=== PATIENT | female | born 1990 | race American Indian/Alaskan Native ===

== ENCOUNTER 2017-08-30 14:35 | Inpatient (IN) | payer MEDICAID ==
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
[2017-08-30] MEDS ORDERED: SUBLIMAZE IV PRN (19:36)
[2017-08-30] MEDS ORDERED: MINERAL OIL PO PRN (19:36)
[2017-08-30] MEDS ORDERED: XYLOCAINE 2% INFILTRATI ONE (19:36)
[2017-08-30] MEDS ORDERED: BRETHINE SUB-Q PRN (19:36)
[2017-08-30] MEDS ORDERED: ePHEDrine SULFATE IV PRN (19:36)
[2017-08-30] MEDS ORDERED: ZOFRAN IV PRN (19:36)
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
[2017-08-30] MEDS ORDERED: PITOCin/NS 20 UNIT/1000ML DRIP 20 UNITS/1,000 ML BAG IV SCH (20:00)
[2017-08-30] MEDS ORDERED: PITOCin/NS 30 UNIT/500ML 30 UNITS/500 ML BAG IV SCH (20:00)
[2017-08-30] MEDS ORDERED: LACTATED RINGERS 1,000 ML IV SCH (20:00)
[2017-08-30 21:23] LABS: Hematocrit 35.4 % (30.3-42.9); Hemoglobin 11.7 gm/dl (10.1-14.3); Mean Corpuscular HGB Conc 33 % (30-34); Mean Corpuscular Hemoglobin 33 pg (28-32); Mean Corpuscular Volume 99 fl (79-97); Platelet Count 180 K/mm3 (140-440); Red Blood Count 3.59 M/mm3 (3.65-5.03); Red Cell Distribution Width 13.6 % (13.2-15.2); White Blood Count 8.8 K/mm3 (4.5-11.0)
[2017-08-30] MEDS ORDERED: fentaNYL-BUPIV 2 MCG/ML-0.125% 200 MCG/100 ML BAG EPIDURAL ONE (22:04)
[2017-08-30] MEDS: PITOCin/NS 30 UNIT/500ML 30 UNITS/500 ML BAG IV SCH ×2 (22:23→22:33)
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
[2017-08-31] MEDS ORDERED: NARCAN 2 MG/2 ML IV PRN (00:57)
[2017-08-31] MEDS ORDERED: ePHEDrine SULFATE IV PRN (00:57)
--- NOTE | 2017-08-31 00:57 | Anesthesia Consultation ---
Anesthesia Consult and Med Hx Date of service: 08/31/17 - Airway Anesthetic Teeth Evaluation: Good ROM Head & Neck: Adequate Mental/Hyoid Distance: Adequate Mallampati Class: Class II Intubation Access Assessment: Probably Good - Pulmonary Exam CTA: Yes - Cardiac Exam Cardiac Exam: RRR - Pre-Operative Health Status ASA Pre-Surgery Classification: ASA2 Proposed Anesthetic Plan: Epidural - Pulmonary Hx Asthma: No COPD: No Hx Pneumonia: No - Cardiovascular System Hx Hypertension: No - Central Nervous System Hx Seizures: No Hx Psychiatric Problems: No - Endocrine Hx Renal Disease: No Hx End Stage Renal Disease: No Hx Hypothyroidism: No Hx Hyperthyroidism: No - Hematic Hx Anemia: No Hx Sickle Cell Disease: No - Other Systems Hx Alcohol Use: No
[2017-08-31] MEDS ORDERED: fentaNYL-BUPIV 2 MCG/ML-0.125% 200 MCG/100 ML BAG EPIDURAL SCH (01:00)
[2017-08-31] MEDS ORDERED: CYTOTEC ONE (01:44)
[2017-08-31] MEDS ORDERED: METHERGINE IM ONE ×2 (01:50→04:47)
--- NOTE | 2017-08-31 02:16 | Procedure Note ---
OB Delivery Note - Delivery Date of Delivery: 08/31/17 ( male) [place] Guide: SHAQ MURILLO Estimated blood loss: 1000cc - Vaginal Delivery presentation: vertex Delivery position: OA Intrapartum events: hemorrhage (resolved with IV pitocin, methergine and cytotec IN) Delivery induction: none Delivery augmentation: rupture of membranes, pitocin Delivery monitor: external FHT, internal uterine Route of delivery: Delivery placenta: spontaneous Delivery cord: nuchal cord (x2, loose), 3 umbilical vessels Episiotomy: none Delivery laceration: vaginal side wall, other (left labial) Delivery repair: vicryl Anesthesia: epidural Delivery comments: male infant del over intact perineum, nuchal cord x 2 easily reduced. placed skin to skin on mother's abd, 3 vessel cord clamped and cut. Placenta del with trailing membranes. Fundus boggy but would firm with massage, 3 times during repair of left vaginal sidewall laceration, large clots were evacuated from uterus and uterus would firm again with massage. Cytotec IN 800mcg placed initially, then IM methergine given. cervix appeared to be intact and no placenta tissue noted in uterus. placenta inspected and appears to be intact. After IM methergine, uterus stayed firm and repair was completed. 2 single stitches placed along labial laceration. total EBL approx 1000ml. Infant's weight 8#4oz, apgars 8/9. Mother and infant remain LDR stable. - A at 1 minute: 8 at 5 minutes: 9 Infant Gender: Male (8#4)
[2017-08-31] MEDS ORDERED: DULCOLAX PR PRN (04:47)
[2017-08-31] MEDS ORDERED: CYTOTEC PR ONE ×2 (04:47→06:00)
[2017-08-31] MEDS ORDERED: LANSINOH TP PRN (04:47)
[2017-08-31] MEDS ORDERED: SODIUM CHLORIDE FLUSH SYRINGE 10 ML IV NR (04:47)
[2017-08-31] MEDS ORDERED: DERMOPLAST TP PRN (04:47)
[2017-08-31] MEDS ORDERED: TYLENOL PO PRN (04:47)
[2017-08-31] MEDS ORDERED: PHENERGAN PO PRN (04:47)
[2017-08-31] MEDS ORDERED: MILK OF MAGNESIA PO PRN (04:47)
[2017-08-31] MEDS ORDERED: PITOCin/NS 20 UNIT/1000ML DRIP 20 UNITS/1,000 ML BAG IV SCH (04:47)
[2017-08-31] MEDS ORDERED: BENADRYL PO PRN (04:47)
[2017-08-31] MEDS ORDERED: NORCO 5/325 PO PRN (04:47)
[2017-08-31] MEDS: MOTRIN PO SCH ×3 (05:33→23:49)
[2017-08-31] MEDS: METHERGINE PO SCH ×3 (05:33→21:32)
[2017-08-31] MEDS: TUCKS PAD TP PRN (05:41)
[2017-08-31] MEDS ORDERED: POLYCILLIN/NS 2 GM/100 ML 2 GM/100 ML BAG IV SCH (06:00)
[2017-08-31] MEDS: FEOSOL PO SCH ×2 (10:13→21:31)
[2017-08-31] MEDS: COLACE PO SCH ×2 (10:13→21:31)
[2017-08-31] MEDS: PRENATAL VITAMIN PO SCH (10:13)
[2017-08-31 14:59] LABS: Hematocrit 28.4 % (30.3-42.9); Hemoglobin 9.8 gm/dl (10.1-14.3)
--- NOTE | 2017-08-31 15:28 | Event Note ---
Date: 08/31/17 (pt w/o complaint No s/sx of anemia) IV has infiltrated will give ABX po for remainder of 24hrs Will start po iron H& H 06/22 all questions addressed.
[2017-08-31] MEDS ORDERED: FEOSOL PO SCH (16:00)
[2017-08-31] MEDS ORDERED: BENADRYL PO NR (17:00)
[2017-08-31] MEDS: TRIMOX PO SCH (18:44)
[2017-09-01] MEDS: TRIMOX PO SCH ×2 (02:59→11:31)
[2017-09-01] MEDS: MOTRIN PO SCH ×4 (05:29→23:30)
[2017-09-01] MEDS: METHERGINE PO SCH ×2 (05:31→17:03)
[2017-09-01] MEDS ORDERED: BOOSTRIX IM ONE (06:00)
--- NOTE | 2017-09-01 08:41 | Progress Note ---
Assessment and Plan Patient c/o nasal congestion and some normal discomfort of her vaginal laceration. VSSAF, last elevated temp >24h ago. Blood cultures negative after 24h. H&H 9.8/28.4 (anemia from blood loss - asymptomatic). Baby in NICU, patient is pumping breastmilk. Continue care. - Patient Problems (1) (normal spontaneous vaginal delivery) Current Visit: Yes Status: Acute (2) hemorrhage, delivered Current Visit: Yes Status: Acute (3) Rhinitis Current Visit: Yes Status: Acute Qualifiers: Rhinitis type: unspecified Plan to address problem: rx sudafed PRN Subjective - Subjective Date of service: 09/01/17 Principal diagnosis: day #1 s/p , afebrile x24h Interval history: EDC Calculations by LMP: 08/26/2017 Past History : 1 Term Births: 0 Premature Births: 0 Living Children: 0 Para: 0 Mult. Births: 0 Prev : 0 Prev. attempt? 0 Aborta: 0 Elect. Ab: 0 Spont. Ab: 0 Ectopics: 0 Past Medical History: Negative Past Medical History Past Surgical History: negative Past Medical History Anesthesia Complications: negative Anemia: negative Autoimmune Disorder: negative Bleeding Disorder: negative Blood Transfusions: negative Breast Disease: negative Diabetes: negative Heart Disease: negative Hypertension: negative Hepatitis/Liver Disease: negative Kidney Disease/UTI: negative Neurologic/Epilepsy/Migraines: negative Phlebitis/Varicosities: negative Psychiatric: negative Pulmonary Disease/Asthma: negative Thyroid Disease: negative Hospitalizations: negative Surgery (Non-dowel pin worker): negative Abnormal PAP: negative JORGE L Exposure: negative Infertility: negative Uterine Anomaly: negative Uterine Surgery (not C/S): negative Other Gynecologic Problems: negative Family Hx: mother - HTN Great aunt - breast CA Social Hx: Single, FOC lives [place] of state 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 of genital herpes: no Partner hx. of genital herpes: no Rash, Viral, or Febrile illness since last LMP? no Varicella/Chicken Pox Status: Previous Disease TB Risk: no Genetic History Congenital Heart Defect: Mom: no Dad: no Narciso Disease: Mom: no Dad: no Thalassemia Mom: no Dad: no Neural Tube Defect Mom: no Dad: no Down's Syndrome Mom: no Dad: no Ramón-Sachs Mom: no Dad: no Sickle Cell Disease/Trait Mom: no Dad: no Hemophilia Mom: no Dad: no Muscular Dystrophy Mom: no Dad: no Cystic Fibrosis Mom: no Dad: no Fatoumata Chorea Mom: no Dad: no Mental Retardation Mom: no Dad: no Fragile X Mom: no Dad: no Other Genetic/Chromosomal Disorder Mom: no Dad: no Child w/other defect Mom: no Dad: no Enviromental Exposures Xray Exposure: no Medication, drug, or alcohol use since LMP: no Chemical/Other Exposure: no Exposure to Cat Liter: no Hx of Parvovirus (Fifth Disease): no Occupational Exposure to Children: none Current Allergies (reviewed today): No known allergies Patient reports: appetite normal, voiding normally, pain well controlled, ambulating normally, other (nasal congestion), no dizzy ambulation, no nauseated [place]: in NICU Objective - Vital Signs Latest vital signs: Vital Signs Temp Pulse Resp BP 09/01/17 07:54 97.6 F 61 18 113/60 09/01/17 05:29 20 08/31/17 23:49 18 08/31/17 23:30 98.6 F 69 16 101/67 08/31/17 16:01 97.9 F 67 20 112/79 Intake and Output 08/31/17 09/01/17 09/01/17 23:59 07:59 15:59 Intake Total 300 120 Balance 300 120 Intake: Oral 120 Intake, Free Water 300 Other: Total, Intake Amount 120 # Voids Void 1 - Exam Breasts: Present: normal Cardiovascular: Present: Regular rate Lungs: Present: Clear to auscultation, Normal air movement Abdomen: Present: normal appearance, soft Vulva: both: laceration/episiotomy Uterus: Present: normal, firm, fundal height at umbilicus Extremities: Present: normal Deep Tendon Reflex Grade: Normal +2 Incision: Present: normal, dry, intact - Labs Labs: Abnormal lab results 08/31/17 Range/Units 14:39 Hgb 9.8 L (10.1-14.3) gm/dl Hct 28.4 L (30.3-42.9) %
[2017-09-01] MEDS ORDERED: SUDAFED PO PRN (10:00)
[2017-09-01] MEDS: PRENATAL VITAMIN PO SCH (11:35)
[2017-09-01] MEDS: FEOSOL PO SCH ×2 (11:35→23:31)
[2017-09-01] MEDS: COLACE PO SCH ×2 (11:35→23:31)
[2017-09-02] MEDS: METHERGINE PO SCH ×3 (00:52→17:03)
[2017-09-02] MEDS: MOTRIN PO SCH ×3 (05:45→23:20)
[2017-09-02] MEDS: FEOSOL PO SCH ×2 (10:14→23:19)
[2017-09-02] MEDS: PRENATAL VITAMIN PO SCH (10:19)
--- NOTE | 2017-09-02 12:20 | Discharge Summary ---
Providers - Providers Date of Admission: 08/30/17 20:02 Attending physician: BRIANNE WHITE 08/31/17 04:47 Consult to Chest Painting Leader [CONS] Routine Reason For Exam: assistance with , SNS Primary care physician: BRIANNE WHITE Hospitalization Reason for admission: labor at term Pertinent studies: Hct 35 down to 28, Bpos Procedures: vag del, pp hemorrhage Hospital course: Did well, normal delivery but PPH, treated medically with Pit, Cytotec, Methergine and resolved, min bleeding now. Disposition: DC-01 TO HOME OR SELFCARE - Discharge Diagnoses (1) (normal spontaneous vaginal delivery) Status: Acute (2) hemorrhage, delivered Status: Acute Core Measure Documentation - Palliative Care Palliative Care/ Comfort Measures: Not Applicable - Core Measures Any of the following diagnoses?: none Exam - Constitutional Vitals: Temp Pulse Resp BP Pulse Ox 98.3 F 67 20 125/77 96 09/02/17 08:05 09/02/17 08:05 09/02/17 08:05 09/02/17 08:05 09/02/17 08:05 General appearance: Present: no acute distress - Respiratory Respiratory effort: normal - Extremities Extremities: no ischemia - Abdominal General gastrointestinal: Present: soft, non-tender Female genitourinary: Present: deferred - Integumentary Integumentary: Present: clear, warm, dry - Musculoskeletal Musculoskeletal: strength equal bilaterally - Psychiatric Psychiatric: appropriate mood/affect - Neurologic Neurologic: CNII-XII intact - Additional findings Additional findings: fundus firm Plan Activity: no restrictions Weight Bearing Status: Weight Bear as Tolerated Diet: regular Follow up with: BRIANNE WHITE MD [Primary Care Provider] - 7 Days Prescriptions: Ferrous Sulfate [Feosol 325 MG tab] 325 mg PO QDAY #30 tablet Ibuprofen [Motrin 600 MG tab] 600 mg PO Q8H PRN #30 tablet PRN Reason: Pain Lidocain2.5%/Prilocai2.5% [Emla] 5 gm TP 1XW #1 tube
[2017-09-02] MEDS: COLACE PO SCH ×2 (17:01→23:19)
[2017-09-03] MEDS: MOTRIN PO SCH (05:04)
[2017-09-03 09:08] VITALS: BP 121/81
[2017-09-03] MEDS: PRENATAL VITAMIN PO SCH (11:39)
[2017-09-03] MEDS: TUCKS PAD TP PRN (11:40)
[2017-09-03] MEDS: FEOSOL PO SCH (11:40)
[2017-09-03] MEDS: COLACE PO SCH (11:40)
== END 2017-09-03 16:00 | disposition home or self-care (01) | DRG 774 ==
LOC: TRG 14:35 → LD 14:36 → TRG 20:01 → LD 20:02 → OB 08-31 04:03
PROVIDERS: ADMIT Obstetrics & Gynecology; ATTEND Obstetrics & Gynecology
PROC: 10H07YZ Insertion of Other Device into Products of Conception, Via Natural or Artificial Opening (ICD-10-PCS; 2017-08-30)
PROC: 10907ZC Drainage of Amniotic Fluid, Therapeutic from Products of Conception, Via Natural or Artificial Opening (ICD-10-PCS; 2017-08-30)
PROC: 10E0XZZ Delivery of Products of Conception, External Approach (ICD-10-PCS; principal; 2017-08-31)
PROC: 0KQM0ZZ Repair Perineum Muscle, Open Approach (ICD-10-PCS; 2017-08-31)
PROC: 3E0234Z Introduction of Serum, Toxoid and Vaccine into Muscle, Percutaneous Approach (ICD-10-PCS; 2017-08-31)
PROC: 3E0R3BZ Introduction of Anesthetic Agent into Spinal Canal, Percutaneous Approach (ICD-10-PCS; 2017-08-31)
PROC: 00HU33Z Insertion of Infusion Device into Spinal Canal, Percutaneous Approach (ICD-10-PCS; 2017-08-31)
DX: O69.81X0 Labor and delivery complicated by cord around neck, without compression, not applicable or unspecified (principal); O72.1 Other immediate postpartum hemorrhage; O76 Abnormality in fetal heart rate and rhythm complicating labor and delivery; Z3A.40 40 weeks gestation of pregnancy; Z37.0 Single live birth; Z82.49 Family history of ischemic heart disease and other diseases of the circulatory system; Z80.9 Family history of malignant neoplasm, unspecified; Z23 Encounter for immunization; O71.4 Obstetric high vaginal laceration alone; O90.81 Anemia of the puerperium; D50.0 Iron deficiency anemia secondary to blood loss (chronic); J31.0 Chronic rhinitis; O99.52 Diseases of the respiratory system complicating childbirth; V49.50XA Passenger injured in collision with unspecified motor vehicles in traffic accident, initial encounter; Y93.89 Activity, other specified; Y92.488 Other paved roadways as the place of occurrence of the external cause; Y99.8 Other external cause status
CPT/HCPCS: 36415; 76819; 85014; 85018; 85027; 86592; 86850; 86900; 86901; 87040; 90471; 90715; 99211; A6250; G0463; J0290; J2210; J2405; J2590; J7120